=== PATIENT | male | born 1990 | race Hispanic/Latino ===

== ENCOUNTER 2019-03-31 09:50 | Emergency (ER) | payer BC, SELFPAY ==
--- OUTSIDE RECORDS SUMMARY | 2019-03-31 10:05 | XMS REPORT | Summary of Care ---
:1990 Author Name Monica Motley M.A. Address Unavailable Unavailable , Care Team Providers Name Role Phone PEGGY ARCE M.D. Unavailable Unavailable GROVER GREGORY MD Unavailable Unavailable Peggy Arce MD Unavailable Unavailable Functional Status Name Dates Details Functional status health issues are not documented Status: Name Dates Details Cognitive status health issues are not documented Status: Problems Name Dates Details Strain of left pectoralis muscle (848.8, S29.011A) Status: Active Medications Name Dates Details Medications not documented Allergies and Adverse Reactions Name Dates Details Allergy history not documented Status: Procedures Procedure Dates Details Procedures not documented Immunization Name Dates Details Immunizations not documented Social History Name Dates Details Unknown if ever smoked Vital Signs Date Test Result Details No Known Vitals to report Results Date Description Value Details Results not documented Plan of Care Name Dates Details Planned Observations Planned Goals not documented Planned Encounters Appointment; PEGGY ARCE M.D. On: 27-Jan-2019 13:45 Instructions Name Dates Details Instructions not documented Encounters Appointment; DWAYNE WALLER M.D. On: 13-Feb-2018 16:00 Encounter Diagnosis: Problem not documented Appointment; PEGGY ARCE M.D. On: 07-Aug-2018 9:30 Encounter Diagnosis: Problem not documented Appointment; PEGGY ARCE M.D. On: 02-Dec-2018 13:45 Encounter Diagnosis: Problem not documented
--- OUTSIDE RECORDS SUMMARY | 2019-03-31 10:05 | XMS REPORT | Continuity of Care Document ---
:1990 Author Organization Interface Problems Problem Status Onset Classification Date Comments Source Date Reported PROLAPSED LUMBAR Active 06/03/20 [facility] MRSA culture Resolved 11/03/19 Problem 06/09/2017 behind left [facility] positive(<span 16 ear and and Spine ID="[id number]" pubic >Confirmed</span> region- )<sup>1</sup> Fracture<sup>2</s Resolved 11/03/19 Problem 06/09/2017 rigth hand- [facility] up> 06 cast and Spine applied Heart murmur Resolved Problem 06/09/2017 [facility] Nerve Active Problem 06/09/2017 [facility] Ortho pain<sup>3</sup> from back and Spine to left leg Medications Medication Details Route Status Patient Ordering Order Source Instructions Provider Date Lactated Ringers 1,000 mL, No Longer Ortho 1,000 mL Rate: 125 Active 017 and ml/hr, Spine Infuse over: 8 hr, Route: IV, Dosing Weight 77.727 kg, Total Volume: 1,000, Start date: 06/06/17 9:23:00 CDT, Duration: 30 day, Stop date: 07/06/17 9:22:00 CDT Hydromorphone 0.5 mg, 0.25 No Longer Ortho mL, Route: Active 017 and IVP, Drug Spine form: INJ, PRN, Dosing Weight 77.273, kg, PRN Pain Score 4-6, Start date: 06/06/17 9:23:00 CDT, Duration: 6 doses or times, Stop date: 06/07/17 0:00:00 CDTNotes: Same as Dilaudid Acetaminophen 325 1 tab, No Longer Ortho MG / Hydrocodone Route: PO, Active 017 and Bitartrate 10 MG Drug Form: Spine Oral Tablet TAB, Dosing Weight 77.273, kg, Q4H, PRN Pain Score 4-6, Start date: 06/06/17 9:23:00 CDT, Duration: 30 day, Stop date: 07/06/17 9:22:00 CDTNotes: Do not exceed 4gm/day of acetaminophe n. (Same as: [place] 325/10) Ondansetron 4 mg, 2 mL, No Longer [facility] Route: IVP, Active 017 and Drug form: Spine INJ, ONCE, Dosing Weight 77.273, kg, PRN Nausea & Vomiting, Start date: 06/06/17 9:23:00 CDTNotes: (Same as: Zofran) MEDICATION WASTE Product Size: 4 mg Product Wasted: ___ mg Promethazine 12.5 mg, 0.5 No Longer [facility] mL, Route: Active 017 and IVPB, Drug Spine form: INJ, Q4H, Dosing Weight 77.727, kg, PRN Nausea & Vomiting, Start date: 06/06/17 9:23:00 CDT, Duration: 30 day, Stop date: 07/06/17 9:22:00 CDTNotes: Do not give IV push. (Same as: Phenergan) Pepcid 20 mg, 50 Inactive [facility] mL, Route: 017 and IVPB, Drug Spine form: INJ, ONCE, Start date: 06/06/17 9:10:00 CDT, Stop date: 06/06/17 9:10:00 CDTNotes: (Same as: Pepcid) Pepcid 20 mg, Inactive [facility] Route: IV, 017 and ONCE, Dosing Spine Weight 77.727, kg, Start date: 06/06/17 8:49:00 CDT, Stop date: 06/06/17 8:49:00 CDT Lactated Ringers 1,000 mL, Inactive [facility] 1,000 mL Rate: 125 017 and ml/hr, Spine Infuse over: 8 hr, Route: IV, Dosing Weight 77.273 kg, Total Volume: 1,000, Start date: 06/06/17 8:18:00 CDT, Duration: 30 day, Stop date: 07/06/17 8:17:00 CDT Ibuprofen PRN, 0 Active [facility] Refill(s) 017 and Spine tramadol 50 mg=1 tab, Active Ortho hydrochloride 50 PO, Q6H, PRN 017 and MG Oral Tablet Pain, # 40 Spine tab, 0 Refill(s) Cyclobenzaprine 10 mg=1 tab, Active Ortho hydrochloride 10 PO, TID, PRN 017 and MG Oral Tablet for spasm, # Spine [Flexeril] 30 tab, 0 Refill(s) Allergies, Adverse Reactions, Alerts Substance Category Reaction Severity Reaction Status Date Comments Source type Reported Immunizations Immunization Date Given Site Status Last Updated Comments Source Results Order Results Value Reference Date Interpretation Comments Source Name Range Vital Signs Vital Sign Value Date Comments Source Temperature Oral (F) 97.9 F 06/06/2017 [facility] Respitory Rate 13 06/06/2017 [facility] Systolic (mm Hg) 126 06/06/2017 [facility] Diastolic (mm Hg) 79 06/06/2017 [facility] Respitory Rate 13 06/06/2017 [facility] Systolic (mm Hg) 112 06/06/2017 [facility] Diastolic (mm Hg) 63 06/06/2017 [facility] Temperature Oral (F) 97.7 F 06/06/2017 [facility] BMI Calculated 25.3 06/06/2017 [facility] Weight 77.727 06/06/2017 [facility] Height 175.26 cm 06/04/2017 [facility] Spine Encounters Location Location Encounter Encounter Reason Attending ADM DC Status Source Details Type Number For Provider Date Date Visit [id number] Bassem 06/06 06/07 [facility] Procedures Procedure Code Date Perfomer Comments Source Epidural steroid [id number] 11/03/2015 on neck Ortho and injection<sup>1< Spine /sup>
--- OUTSIDE RECORDS SUMMARY | 2019-03-31 10:05 | XMS REPORT | Clinical Summary ---
:1990 Author Organization [facility] Address [address] [place] [address] Care Team Providers Name Role Phone Noe Wright MD Primary Care Provider Allergies Not on File Medications Not on file Active Problems Not on file Social History Tobacco Use Types Packs/Day Years Used Date Never Assessed Sex Assigned at Date Recorded Not on file Job Start Date Occupation Industry Not on file Not on file Not on file Travel History Travel Start Travel End No recent travel history available. Last Filed Vital Signs Not on file Plan of Treatment Health Maintenance Due Date Last Done Comments INFLUENZA VACCINE 06/03/2019 Results Not on fileafter 03/30/2018 Advance Directives Patient has advance care planning documents on file. For more information, please contact:[address] [address]
--- OUTSIDE RECORDS SUMMARY | 2019-03-31 10:05 | XMS REPORT | Summary of Care ---
:1990 Author Organization [facility] Address [address] [place] [id number]- Encounter HQ Chidi(FIN) [id number] Date(s): 06/06/17 - 06/06/17 [facility] [address] [place] [address] [id number] [phone] Discharge Disposition: Home or Self Care Attending Physician: Bassem Mcdermott MD Referring Physician: Bassem Mcdermott MD Vital Signs Most recent to oldest [Reference Range]: 1 2 Height 175.26 cm (06/04/17 9:13 AM) Temperature Oral [96.4-99.1 DegF] 97.9 DegF 97.7 DegF (06/06/17 9:17 AM) (06/06/17 8:42 AM) Blood Pressure [90-140/60-90 mmHg] 126/79 mmHg 112/63 mmHg (06/06/17 9:17 AM) (06/06/17 8:42 AM) Respiratory Rate [14-20 BRMIN] 13 BRMIN 13 BRMIN *LOW* *LOW* (06/06/17 9:17 AM) (06/06/17 8:42 AM) Weight 77.727 kg (06/06/17 8:19 AM) Body Mass Index 25.3 m2 (06/06/17 8:19 AM) Problem List Condition Effective Dates Status Health Status Informant MRSA (methicillin resistant staph 2016 Resolved aureus) culture positive(Confirmed)1 Heart murmur(Confirmed) Resolved Fracture(Confirmed)2 2005 Resolved Nerve pain(Confirmed)3 Active 1behind left ear and pubic region-2rigth hand- cast [id number] from back to left leg Allergies, Adverse Reactions, Alerts Substance Reaction Severity Status NKDA Active Medications acetaminophen-hydrocodone 325 mg-10 mg oral tablet 1 tab, Route: PO, Drug Form: TAB, Dosing Weight 77.273, kg, Q4H, PRN Pain Score 4-6, Start date: 06/06/17 9:23:00 CDT, Duration: 30 day, Stop date: 07/06/17 9: 22:00 CDT Notes: Do not exceed 4gm/day of acetaminophen. (Same as: [place] 325/10) Start Date: 06/06/17 Stop Date: 06/07/17 Status: DiscontinuedFlexeril 10 mg oral tablet 10 mg=1 tab, PO, TID, PRN for spasm, # 30 tab, 0 Refill(s) Start Date: 06/04/17 Status: Orderedhydromorphone 0.5 mg, 0.25 mL, Route: IVP, Drug form: INJ, PRN, Dosing Weight 77.273, kg, PRN Pain Score 4-6, Start date: 06/06/17 9:23:00 CDT, Duration: 6 doses or times, Stop date: 06/07/17 0:00:00 CDT Notes: Same as Dilaudid Start Date: 06/06/17 Stop Date: 06/07/17 Status: Completedhydromorphone 1 mg, 0.5 mL, Route: IVP, Drug form: INJ, PRN, Dosing Weight 77.273, kg, PRN Pain Score 7-10, Start date: 06/06/17 9:23:00 CDT, Duration: 3 doses or times, Stop date: 06/07/17 0:00:00 CDT Notes: Same as Dilaudid Start Date: 06/06/17 Stop Date: 06/07/17 Status: Completedibuprofen PRN, 0 Refill(s) Start Date: 06/04/17 Status: OrderedLactated Ringers 1,000 mL 1,000 mL, Rate: 125 ml/hr, Infuse over: 8 hr, Route: IV, Dosing Weight 77.727 kg , Total Volume: 1,000, Start date: 06/06/17 9:23:00 CDT, Duration: 30 day, Stop date: 07/06/17 9:22:00 CDT Start Date: 06/06/17 Stop Date: 06/07/17 Status: DiscontinuedLactated Ringers 1,000 mL 1,000 mL, Rate: 125 ml/hr, Infuse over: 8 hr, Route: IV, Dosing Weight 77.273 kg , Total Volume: 1,000, Start date: 06/06/17 8:18:00 CDT, Duration: 30 day, Stop date: 07/06/17 8:17:00 CDT Start Date: 06/06/17 Stop Date: 06/06/17 Status: Discontinuedondansetron 4 mg, 2 mL, Route: IVP, Drug form: INJ, ONCE, Dosing Weight 77.273, kg, PRN Nausea & Vomiting, Start date: 06/06/17 9:23:00 CDT Notes: (Same as: Zofran) MEDICATION WASTE Product Size: 4 mgProduct Wasted: ___ mg Start Date: 06/06/17 Stop Date: 06/07/17 Status: DiscontinuedPepcid 20 mg, 50 mL, Route: IVPB, Drug form: INJ, ONCE, Start date: 06/06/17 9:10:00 CDT, Stop date: 06/06/17 9:10:00 CDT Notes: (Same as: Pepcid) Start Date: 06/06/17 Stop Date: 06/06/17 Status: OrderedPepcid 20 mg, Route: IV, ONCE, Dosing Weight 77.727, kg, Start date: 06/06/17 8:49:00 CDT, Stop date: 06/06/17 8:49:00 CDT Start Date: 06/06/17 Stop Date: 06/06/17 Status: Voided With Resultspromethazine 12.5 mg, 0.5 mL, Route: IVPB, Drug form: INJ, Q4H, Dosing Weight 77.727, kg, PRN Nausea & Vomiting, Start date: 06/06/17 9:23:00 CDT, Duration: 30 day, Stop date: 07/06/17 9:22:00 CDT Notes: Do not give IV push. (Same as: Phenergan) Start Date: 06/06/17 Stop Date: 06/07/17 Status: Discontinuedtramadol 50 mg oral tablet 50 mg=1 tab, PO, Q6H, PRN Pain, # 40 tab, 0 Refill(s) Start Date: 06/04/17 Stop Date: 06/14/17 Status: Ordered Results No data available for this section Immunizations No data available for this section Procedures Procedure Date Related Diagnosis Body Site Epidural steroid injection1 2015 1on neck Social History Social History Type Response Exercise 1 Alcohol Never Smoking Status Former smoker; Exposure to Tobacco Smoke None; Cigarette Smoking Last 365 Days No; Reg Smoking Cessation Counseling No 1no exercise Assessment and Plan Extracted from: Title: Clinical Document Author: Bassem Mcdermott MD Date: 06/06/17 HISTORY AND PHYSICAL EXAMINATION/REVIEW OF SYSTEMS Present Complaint:_ low back and left leg pain Past History: since injury in january Alcohol Details: Never Exercise Comment(s): no exercise Tobacco Details: Use: Former smoker. Tobacco smoke exposure: None. Did the Patient Smoke Cigarettes Anytime During the Last 365 Days? No. Cessation Counseling Provided? No. Epidural steroid injection: 2015 Heart murmur Fracture MRSA (methicillin resistant staph aureus) culture positive No qualifying data available Allergies Allergies (1) Active Reaction NKDA None Documented Home Medications: Home Medications (3) Active Flexeril 10 mg oral tablet 10 mg=1 tab, PRN, PO, TID ibuprofen , PRN tramadol 50 mg oral tablet 50 mg=1 tab, PRN, PO, Q6H Vitals Signs: Vital Signs (last 24 hrs) Last Charted Weight 77.727 kg (JUN 06 08:19) BMI 25.3 (JUN 06 08:19) General(_xAlert, Oriented, No Acute Distress):_ Pertinent Lab:___none HEENT (_x no mass or deformity):_ Torso/Breast (_ no mass or deformity):_ Heart (_x normal Rhythm, no murmur or gallop):_ Lungs (_x Clear no auscultation):_ Abdomen (no mass or tenderness):_deferred Pelvic/Rectal (no mass or tenderness):_ deferred Extremities (no edema or tenderness):_ deferred Neurological (_ intact):_ deferred Impressions: _ Diagnosis: -lumbar disc herniation [id number] Treatment plan:_ left L5-S1 TFESI
[2019-03-31 10:58] LABS: Absolute Lymphocytes (CBC) 1.6 K/uL (0.7-4.9); Absolute Monocytes 0.3 K/uL (0.1-1.3); Basophils % 0.7 % (0-1.3); Eosinophils % 3.7 % (0-4.4); Hematocrit 47.1 % (39.6-49.0); Lymphocytes % 31.7 % (15.3-44.8); MPV 9.7 fL (7.6-11.3); Monocytes % 5.8 % (3.3-12.3); RBC Red Blood Cell Count 5.72 M/uL (4.33-5.43)
[2019-03-31] MEDS ORDERED: ONDANSETRON 4 MG/2 ML VIAL ONE (11:12)
[2019-03-31] MEDS ORDERED: NA CHLORIDE 0.9% 1,000 ML ONE (11:12)
[2019-03-31 11:20] LABS: ALT/SGPT 36 U/L (12-78); AST/SGOT 23 U/L (15-37); Albumin 4.4 g/dL (3.4-5.0); Alkaline Phosphatase 63 U/L (45-117); BUN Blood Urea Nitrogen 19 mg/dL (7-18); Bicarbonate 29 mmol/L (21-32); Bilirubin Direct 0.2 mg/dL (0-0.2); Bilirubin Total 0.7 mg/dL (0.2-1.0); Glucose Level 88 mg/dL (74-106); Lipase 68 U/L (73-393); Potassium 4.1 mmol/L (3.5-5.1); Protein, Total 7.5 g/dL (6.4-8.2); Sodium Level 140 mmol/L (136-145)
[2019-03-31 11:40] LABS: Urine Blood NEGATIVE (NEG); Urine Glucose NEGATIVE (NEG); Urine Protein NEGATIVE (NEG); Urine Specific Gravity 1.025 (1.005-1.030); Urine pH 5.5 (5.0-7.0)
--- NOTE | 2019-03-31 12:46 | RAD REPORT ---
EXAM DESCRIPTION: CTAbdomen Pelvis W Contrast - 03/31/2019 12:32 pm CLINICAL HISTORY: Abdominal pain. RLQ PAIN COMPARISON: No comparisons TECHNIQUE: Biphasic CT imaging of the abdomen and pelvis was performed with 100 ml non-ionic IV cont rast. All CT scans are performed using dose optimization technique as appropriate and may include automated exposure control or mA/KV adjustment according to patient size. FINDINGS: The lung bases are clear. The liver, spleen, pancreas, adrenal glands and kidneys are within normal limits. No bowel obstruction, free air, free fluid or abscess. The appendix is normal. No evidence of signi ficant lymphadenopathy. No suspicious bony findings. IMPRESSION: No acute intra-abdominal or pelvic finding.
--- NOTE | 2019-03-31 13:12 | ER ---
Nurse's Notes [facility] Name: Chidi Zamorano Age: 28 yrs Sex: Male : 1990 Arrival Date: 03/31/2019 Time: 09:54 Bed 7 Private MD: None, None Diagnosis: Unspecified abdominal pain Presentation: 03/31 10:32 Presenting complaint: Patient states: RLQ pain since 0130 this morning, 06/12, c/o iw nausea, no vomiting, denies urinary symptoms. Transition of care: patient was not received from another setting of care. Onset of symptoms was March 31, 2019. Risk Assessment: Do you want to hurt yourself or someone else? Patient reports no desire to harm self or others. Initial Sepsis Screen: Does the patient meet any 2 criteria? No. Patient's initial sepsis screen is negative. Does the patient have a suspected source of infection? No. Patient's initial sepsis screen is negative. Care prior to arrival: None. 10:32 Method Of Arrival: Wheelchair iw 10:32 Acuity: RHINA 3 iw Historical: - Allergies: 10:36 No Known Allergies; iw - Home Meds: 10:36 None [Active]; iw - PMHx: 10:36 L5 herniation; iw - PSHx: 10:36 None; iw - Immunization history:: Adult Immunizations not up to date. - Social history:: Smoking status: Patient/guardian denies using tobacco. - Ebola Screening: : Patient negative for fever greater than or equal to 101.5 degrees Fahrenheit, and additional compatible Ebola Virus Disease symptoms Patient denies exposure to infectious person Patient denies travel to an Ebola-affected area in the 21 days before illness onset No symptoms or risks identified at this time. Screenin:11 Abuse screen: Denies threats or abuse. Denies injuries from another. Nutritional ph screening: No deficits noted. Tuberculosis screening: No symptoms or risk factors identified. Fall Risk None identified. Assessment: 10:35 General: Appears in no apparent distress. comfortable, slender, well groomed, Behavior ph is calm, cooperative, appropriate for age, Denies fever. 10:35 Pain: Complains of pain in right lower quadrant Pain does not radiate. Pain currently ph is 8 out of 10 on a pain scale. Quality of pain is described as sharp, Pain began "this morning.". Neuro: Level of Consciousness is awake, alert, obeys commands, Oriented to person, place, time, situation. Cardiovascular: Capillary refill < 3 seconds in bilateral fingers Patient's skin is warm and dry. Respiratory: Airway is patent Respiratory effort is even, unlabored, Respiratory pattern is regular, symmetrical. GI: Abdomen is flat, non-distended, Bowel sounds present X 4 quads. Abd is soft X 4 quads Abdomen is tender to palpation in right lower quadrant Reports lower abdominal pain, nausea, Patient currently denies diarrhea, vomiting. : Denies burning with urination, inability to void, urinary frequency. Derm: Skin is intact, is healthy with good turgor, Skin is pink, warm \\T\\ dry. Musculoskeletal: Circulation, motion, and sensation intact. Range of motion: intact in all extremities. 11:12 Reassessment: Patient appears in no apparent distress at this time. Patient and/or ph family updated on plan of care and expected duration. Pain level reassessed. Patient is alert, oriented x 3, equal unlabored respirations, skin warm/dry/pink. CT notified that pt completed PO contrast at 1050. 12:14 Reassessment: Patient appears in no apparent distress at this time. Patient and/or ph family updated on plan of care and expected duration. Pain level reassessed. Patient is alert, oriented x 3, equal unlabored respirations, skin warm/dry/pink. Pt resting quietly, reports that nausea has improved, awaiting CT scan, VSS, will continue to monitor. 13:18 Reassessment: Patient appears in no apparent distress at this time. Patient and/or ph family updated on plan of care and expected duration. Pain level reassessed. Patient is alert, oriented x 3, equal unlabored respirations, skin warm/dry/pink. Pt ambulated to restroom with steady gait, reports having BM and states that pain has decreased to 1/10, denies nausea, awaiting d/c. Vital Signs: 10:36 BP 135 / 64; Pulse 64; Resp 16; Temp 98.6(TE); Pulse Ox 96% on R/A; Weight 79.38 kg; iw Height 5 ft. 9 in. (175.26 cm); Pain 8/10; 11:12 BP 114 / 74; Pulse 62; Resp 18; Pulse Ox 98% on R/A; ph 12:14 BP 102 / 60; Pulse 57; Resp 18; Pulse Ox 98% on R/A; ph 13:30 BP 117 / 72; Pulse 58; Resp 18; Temp 97.9; Pulse Ox 99% on R/A; ph 10:36 Body Mass Index 25.84 (79.38 kg, 175.26 cm) iw ED Course: 09:54 Patient arrived in ED. mr 09:54 None, None is Private Physician. mr 10:22 Star Reagan, LINEN WORKER is PHCP. pm1 10:22 Fidencio Carbone MD is Attending Physician. pm1 10:24 Marisol Madison, MARLON is Primary Nurse. ph 10:35 Triage completed. iw 10:36 Arm band placed on. iw 10:49 Initial lab(s) drawn, by me, sent to lab. Inserted saline lock: 20 gauge in right ms antecubital area, using aseptic technique. Blood collected. 11:04 Urine collected: clean catch specimen, clear, Amount Voided: 80mL. ms 11:11 Patient has correct armband on for positive identification. Bed in low position. Call ph light in reach. Side rails up X 1. Pulse ox on. NIBP on. Door closed. Noise minimized. Warm blanket given. Head of bed elevated. 11:11 No provider procedures requiring assistance completed. ph 12:25 CT completed. Patient tolerated procedure well. Patient moved to CT via wheelchair. sj Patient moved back from CT. 12:33 CT Abd/Pelvis - W/Contrast In Process Unspecified. EDMS 13:31 IV discontinued, intact, bleeding controlled, No redness/swelling at site. Pressure ph dressing applied. Administered Medications: 11:06 Drug: NS 0.9% 1000 ml Route: IV; Rate: 1000 ml; Site: right antecubital; ph 13:19 Follow up: Response: No adverse reaction; IV Status: Completed infusion ph 11:06 Drug: Zofran 4 mg Route: IVP; Site: right antecubital; ph 13:20 Follow up: Response: No adverse reaction; Nausea is decreased ph 13:19 Drug: TORadol 30 mg Route: IVP; Site: right antecubital; ph 13:20 Follow up: Response: No adverse reaction; Pain is decreased ph Outcome: 13:11 Discharge ordered by . pm1 13:30 Discharged to home ambulatory, with significant other. ph 13:30 Condition: good 13:30 Discharge instructions given to patient, significant other, Instructed on discharge instructions, follow up and referral plans. medication usage, Demonstrated understanding of instructions, follow-up care, medications, Prescriptions given X 2. 13:37 Patient left the ED. ph Signatures: Dispatcher [employer] EDDE Mary Engel mr Cruz, Bobbi Hernandez RN RN Monica Gottlieb ms Marisol Madison RN RN ph Marinas, Patrick, DIMAS LINEN WORKER pm1 Corrections: (The following items were deleted from the chart) 11:11 10:30 General: Appears ph ph
--- NOTE | 2019-03-31 13:12 | EDPHYS ---
Physician Documentation [facility] Name: Chidi Zamorano Age: 28 yrs Sex: Male : 1990 Arrival Date: 03/31/2019 Time: 09:54 Bed 7 Private MD: None, None ED Physician Fidencio Carbone HPI: 03/31 10:32 This 28 yrs old Male presents to ER via Unassigned with complaints of pm1 Abdominal Pain. 10:32 The patient presents with abdominal pain right lower quadrant. Onset: The pm1 symptoms/episode began/occurred this morning, at 01:30. The symptoms do not radiate. Associated signs and symptoms: Pertinent positives: nausea, Pertinent negatives: chest pain, diarrhea, dysuria, fever, shortness of breath, vomiting. The symptoms are described as constant. Modifying factors: The symptoms are alleviated by nothing, the symptoms are aggravated by nothing. Severity of pain: in the emergency department the pain is actually worse. The patient has not experienced similar symptoms in the past. The patient has not recently seen a physician. 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 - Social history:: Smoking status: Patient/guardian denies using tobacco. - Ebola Screening: : Patient negative for fever greater than or equal to 101.5 degrees Fahrenheit, and additional compatible Ebola Virus Disease symptoms Patient denies exposure to infectious person Patient denies travel to an Ebola-affected area in the 21 days before illness onset No symptoms or risks identified at this time. ROS: 10:33 Constitutional: Negative for fever, chills, and weight loss, Eyes: Negative for injury, pm1 pain, redness, and discharge, ENT: Negative for injury, pain, and discharge, Neck: Negative for injury, pain, and swelling, Cardiovascular: Negative for chest pain, palpitations, and edema, Respiratory: Negative for shortness of breath, cough, wheezing, and pleuritic chest pain. 10:33 Back: Negative for injury and pain, : Negative for injury, bleeding, discharge, and swelling, MS/Extremity: Negative for injury and deformity, Skin: Negative for injury, rash, and discoloration, Neuro: Negative for headache, weakness, numbness, tingling, and seizure. 10:33 Abdomen/GI: Positive for abdominal pain, nausea, Negative for vomiting, diarrhea, constipation. Exam: 10:33 Constitutional: This is a well developed, well nourished patient who is awake, alert, pm1 and in no acute distress. Head/Face: Normocephalic, atraumatic. Eyes: Pupils equal round and reactive to light, extra-ocular motions intact. Lids and lashes normal. Conjunctiva and sclera are non-icteric and not injected. Cornea within normal limits. Periorbital areas with no swelling, redness, or edema. ENT: Nares patent. No nasal discharge, no septal abnormalities noted. Tympanic membranes are normal and external auditory canals are clear. Oropharynx with no redness, swelling, or masses, exudates, or evidence of obstruction, uvula midline. Mucous membranes moist. Neck: Trachea midline, no thyromegaly or masses palpated, and no cervical lymphadenopathy. Supple, full range of motion without nuchal rigidity, or vertebral point tenderness. No Meningismus. Chest/axilla: Normal chest wall appearance and motion. Nontender with no deformity. No lesions are appreciated. Cardiovascular: Regular rate and rhythm with a normal S1 and S2. No gallops, murmurs, or rubs. Normal PMI, no JVD. No pulse deficits. Respiratory: Lungs have equal breath sounds bilaterally, clear to auscultation and percussion. No rales, rhonchi or wheezes noted. No increased work of breathing, no retractions or nasal flaring. 10:33 Back: No spinal tenderness. No costovertebral tenderness. Full range of motion. Skin: Warm, dry with normal turgor. Normal color with no rashes, no lesions, and no evidence of cellulitis. MS/ Extremity: Pulses equal, no cyanosis. Neurovascular intact. Full, normal range of motion. 10:33 Abdomen/GI: Inspection: abdomen appears normal, Bowel sounds: normal, Palpation: soft, in all quadrants, mild abdominal tenderness, in the right lower quadrant, mass, is not appreciated, rebound tenderness, is not appreciated. 10:33 Neuro: Orientation: is normal, Motor: is normal, moves all fours, Sensation: is normal, no obvious gross deficits, Gait: is steady, at a normal pace, without difficulty. Vital Signs: 10:36 BP 135 / 64; Pulse 64; Resp 16; Temp 98.6(TE); Pulse Ox 96% on R/A; Weight 79.38 kg; iw Height 5 ft. 9 in. (175.26 cm); Pain 8/10; 11:12 BP 114 / 74; Pulse 62; Resp 18; Pulse Ox 98% on R/A; ph 12:14 BP 102 / 60; Pulse 57; Resp 18; Pulse Ox 98% on R/A; ph 13:30 BP 117 / 72; Pulse 58; Resp 18; Temp 97.9; Pulse Ox 99% on R/A; ph 10:36 Body Mass Index 25.84 (79.38 kg, 175.26 cm) iw MDM: 10:24 Patient medically screened. christina 10:31 ED course: Patient refused pain medications. Informed patient that at anytime he would pm1 like his pain addressed to let us know. 13:11 Data reviewed: vital signs. Data interpreted: Pulse oximetry: on room air is 98 %. pm1 Interpretation: normal. Counseling: I had a detailed discussion with the patient and/or guardian regarding: the historical points, exam findings, and any diagnostic results supporting the discharge/admit diagnosis, lab results, radiology results, the need for outpatient follow up, to return to the emergency department if symptoms worsen or persist or if there are any questions or concerns that arise at home. 03/31 10:31 Order name: Basic Metabolic Panel; Complete Time: 11:56 pm03/31 10:31 Order name: CBC with Diff; Complete Time: 11:05 pm03/31 10:31 Order name: Creatinine for Radiology; Complete Time: 11:56 pm03/31 10:31 Order name: Hepatic Function; Complete Time: 11:56 pm1 03/31 10:31 Order name: Lipase; Complete Time: 11:56 pm03/31 11:22 Order name: Urine Dipstick--Ancillary (enter results); Complete Time: 12:06 bd 03/31 10:31 Order name: IV Saline Lock; Complete Time: 10:49 pm03/31 10:31 Order name: Labs collected and sent; Complete Time: 10:49 pm1 03/31 10:31 Order name: CT Abd/Pelvis - W/Contrast; Complete Time: 12:54 pm1 03/31 10:31 Order name: Urine Dipstick-Ancillary (obtain specimen); Complete Time: 11:01 pm1 Administered Medications: 11:06 Drug: NS 0.9% 1000 ml Route: IV; Rate: 1000 ml; Site: right antecubital; ph 13:19 Follow up: Response: No adverse reaction; IV Status: Completed infusion ph 11:06 Drug: Zofran 4 mg Route: IVP; Site: right antecubital; ph 13:20 Follow up: Response: No adverse reaction; Nausea is decreased ph 13:19 Drug: TORadol 30 mg Route: IVP; Site: right antecubital; ph 13:20 Follow up: Response: No adverse reaction; Pain is decreased ph Disposition: 15:38 Co-signature as Attending Physician, Fidencio Carbone MD I agree with the assessment and christina plan of care. Disposition: 03/31/19 13:11 Discharged to Home. Impression: Unspecified abdominal pain. - Condition is Stable. - Discharge Instructions: Abdominal Pain, Adult. - Prescriptions for Naprosyn 500 mg Oral Tablet - take 1 tablet by ORAL route 2 times per day take with food; 30 tablet. Cyclobenzaprine 10 mg Oral Tablet - take 1 tablet by ORAL route every 8 hours As needed; 30 tablet. - Family Work Release, Medication Reconciliation Form, Thank You Letter, Antibiotic Education, Prescription Opioid Use form. - Follow up: Emergency Department; When: As needed; Reason: Worsening of condition. Follow up: Private Physician; When: 2 - 3 days; Reason: Recheck today's complaints, Continuance of care, Re-evaluation by your physician. - Problem is new. - Symptoms have improved. Signatures: Dispatcher [employer] Fidencio Vizcarra MD MD cha Williams, Irene, RN RN iw Hall, Patricia, RN RN ph Marinas, Patrick, NP PRECIPITATOR SUPERVISOR pm1 Corrections: (The following items were deleted from the chart) 13:37 13:11 03/31/2019 13:11 Discharged to Home. Impression: Unspecified abdominal pain. ph Condition is Stable. Forms are Medication Reconciliation Form, Thank You Letter, Antibiotic Education, Prescription Opioid Use. Follow up: Emergency Department; When: As needed; Reason: Worsening of condition. Follow up: Private Physician; When: 2 - 3 days; Reason: Recheck today's complaints, Continuance of care, Re-evaluation by your physician. Problem is new. Symptoms have improved. pm1
[2019-03-31] MEDS ORDERED: KETOROLAC 30 MG/ML INJ ONE (13:27)
== END 2019-03-31 13:37 | disposition home or self-care (01) ==
LOC: ER 09:50
DX: R10.31 Right lower quadrant pain (principal)
CPT/HCPCS: 36415; 74177; 80048; 80076; 81003; 83690; 85025; 96361; 96374; 96375; 99284; J2405; J7030; Q9967